=== PATIENT | female | born 1975 | race African-American/Black ===

== ENCOUNTER 2025-01-01 13:25 | Emergency (ER) | payer OTHER ==
[2025-01-01 13:37] VITALS: O2SAT 100
[2025-01-01 13:55] VITALS: PULSE 104; RESP 16
[2025-01-01] MEDS: IBUPROFEN 600MG TABLET PO ONE (13:55)
[2025-01-01 14:16] LABS: CLARITY URINE CLEAR (CLEAR); COLOR URINE YELLOW (YELLOW); GLUCOSE URINE 3+ (NEGATIVE); KETONES URINE TRACE (NEGATIVE); LEUKOCYTE ESTERASE URINE TRACE (NEGATIVE); NITRITE URINE NEGATIVE (NEGATIVE); OCCULT BLOOD URINE NEGATIVE (NEGATIVE); PH URINE 5.5 (4.5-8.0); PROTEIN URINE 1+ (NEGATIVE); SPECIFIC GRAVITY URINE 1.034 (1.005-1.030); UROBILINOGEN URINE 1.0 E.U./dL (0.2-1.0)
[2025-01-01 14:37] LABS: MUCUS URINE 1+ /lpf (< = 2+)
[2025-01-01 14:38] LABS: BACTERIA URINE TRACE; RBC URINE NONE SEEN /hpf (0-2)
[2025-01-01 14:39] LABS: SQUAMOUS EPITHELIAL CELL URINE 1+ /lpf (RARE/1+)
== END 2025-01-01 17:16 | disposition home or self-care (01) ==
LOC: ER 13:25
DX: N99.3 Prolapse of vaginal vault after hysterectomy (principal)
CPT/HCPCS: 81003; 81025; 99284